=== PATIENT | male | born 1970 | race Caucasian/White ===

== ENCOUNTER 2025-07-26 11:41 | Emergency (ER) | payer OTHER, SELFPAY ==
--- OUTSIDE RECORDS SUMMARY | 2007-01-13 03:03 | XMS_ITS | Continuity of Care Document ---
Author Organization [facility] Address [address] [place] [address] Phone Care Team Providers Care Matlab Developer Name Role Phone Unavailable Unavailable Unavailable Procedures Procedure [facility] Advance Directives Directive Yes / No Effective Date File Name No Information Encounters Encounter Description Practice Location Reason(s) For Visit Diagnoses Date Provider Providers Copied on Encounter Office/outpat ient visit,[facility], [address], [place], [place], [id number], [place] tel:[phone] [facility] No Information 7 No Information Family History Family Member Type Diagnosis Age At Onset No Information Payers Payer name Insurance type Covered alliance party ID Authoriza tion(s) [employer] Blue Shiel d [place] BL [id number] Social History Type Description Quantity Date Captured Comments Sex Male Smoking Status No Information Chief Complaint And Reason For Visit No Information Reason For Referral Reason For Referral No Information History Of Present Illness Encounter Date Complaint History Of Prese nt Illness No Information Functional Status Date Functional Assessmen t No Information Instructions Date Instruction Additional Infor mation No Information Assessments Type Assessment Date No Information Patient Care Teams Name Effective Dates (start - stop) Status Members No Information
--- OUTSIDE RECORDS SUMMARY | 2007-01-13 03:03 | XMS_ITS | Continuity of Care Document ---
Author Organization [facility] Address [address] [place] [address] Phone Care Team Providers Care Salad Maker Name Role Phone Unavailable Unavailable Unavailable Procedures Procedure [facility] Advance Directives Directive Yes / No Effective Date File Name No Information Encounters Encounter Description Practice Location Reason(s) For Visit Diagnoses Date Provider Providers Copied on Encounter Office/outpat ient visit,[facility], [address], [place], [place], [id number], [place] tel:[phone] [facility] No Information 7 No Information Family History Family Member Type Diagnosis Age At Onset No Information Payers Payer name Insurance type Covered libertarian ID Authoriza tion(s) [employer] Blue [employer] Blue Shiel d [place] BL [id number] Social History Type Description Quantity Date Captured [...]
[2025-07-26 11:51] VITALS: BP 142/93; PULSE 71; RESP 18; TEMP 36.6; O2SAT 99
--- OUTSIDE RECORDS SUMMARY | 2025-07-26 11:59 | XMS_ITS | Clinical Summary ---
Author Organization [facility] Address [address] [place] [address] Care Team Providers Care Nursery Technician Name Role Phone Harpreet Thompson MD Primary Care Provider [phone] Source Comments [facility] [facility],non-owned Affiliates and Associated Physician Practices is amultiple site organization consisting of ambulatory clinics and hospital sitesin [place], [place], [place]. This disclosure is being madepursuant to the Care Everywhere program and may not contain all information available regarding this patient. Last updated 18.[facility] [facility] Allergies No known active allergies Medications * Be aware that medications may not be up to date on this document. Alwaysverify current medications with the patient. ibuprofen (Motrin) 200 MG tablet Take 3 (three) tablets by mouth every 6 hours as needed for Pain Active methylPREDNISol one (Medrol Dosepak) 4 MG tabletIndicatio ns:Prepatellar bursitis of right knee Take by mouth as directed Take as directed by mouth per package instructions. 21 tablet 04/06/2024 Active Active Problems Problem Noted Date Diagnosed Date Kidney stone on left side 12/02/2019 Family History Medical History Relation Name Comments Nephrolithiasis Father Cancer Mother Relation Name Status Comments Father Alive Mother Social History Tobacco Use Types Packs/Day Years Used Date Smoking Tobacco: Never Smokeless Tobacco: Never Tobacco Cessation:Counseling Given: Not Answered Alcohol Use Standard Drinks/Week Comments Yes 0 (1 standard drink = 0.6 oz pur e alcohol) occasional PHQ-2 Answer Date Recorded Patient Health Questionnaire-2 Score 0 04/06/2024 Sex and Gender Information Value Date Recorded Sex Assigned at Not on file 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 Gender Identity Not on file Sexual Orientation Not on file Last Filed Vital Signs Vital Sign Reading Time Taken Comments Blood Pressure 124/68 04/06/2024 8:35 AM CDT Pulse 98 04/06/2024 8:35 AM CDT Temperature 36.9 C (98.4 F) 04/06/2024 8:35 AM CDT Respiratory Rate 16 04/06/2024 8:35 AM CDT Oxygen Saturation 98% 04/06/2024 8:35 AM CDT Inhaled Oxygen Concentration - - Weight 79.1 kg (174 lb 6.4 oz) 04/06/2024 8:35 A M CDT Height 190.5 cm (6' 3) 04/06/2024 8:35 AM CDT Body Mass Index 21.8 04/06/2024 8:35 AM CDT Plan of Treatment Health Maintenance Due Date Last Done Comments COLOGUARD (AGES 45-75) - COL ON CA SCREENING 1971 COLON MONITORING 1971 COLONOSCOPY - COLON CA SCREENING 1971 CT COLONOGRAPHY - COLON CA SCREENING 1971 Colorectal Cancer Screening 1971 FIT - COLON CA SCREENING 1971 FLEX SIG - COLON CA SCREENING 1971 LIPID TESTING 1971 HIV SCREENING 1986 HEPATITIS C SCREENING 02/19/1989 DTAP/TDAP/TD VACCINES (1 - Tdap) 1990 HEPATITIS B VACCINE (1 of 3 - 19+ 3-dose series) 1990 PNEUMOCOCCAL VACCINE 50+ (1 of 1 - PCV) 2021 ZOSTER VACCINE (1 of 2) 2021 DEPRESSION SCREENING 11/18/2024 04/06/2024, 11/14/2023 COVID-19 VACCINE (1 - 2023-2 5 season) 2025 INFLUENZA VACCINE (#1) 2025 HIB VACCINE Aged Out No longer eligi ble based on patient's age to complete this topic HPV VACCINE Aged Out No longer eligi ble based on patient's age to complete this topic MENINGOCOCCAL (Group B) VACCINE SHARED DECISION-MAKING Aged Out No longer eligible based on patient's age to complete this topic MENINGOCOCCAL GROUPS A/C/Y/W VACCINE Aged Out No longer eligible b ased on patient's age to complete this topic Medical Devices Implanted Type Area Endocrinology Teacher Device Identifier Shelf Expiration Date Model / Serial / Lot Stent Uret 6fr 30cm Pgtl Crv Bldr Mrk - Sn/A Implanted:Qty: 1 on 12/02/2019 by Igor Pacheco MD at [facility] [employer] [facility] 08/04/2022 [id number] / N/A / [id number] Insurance Member Subscriber Plan / Payer (Ef fective 2019-Present) Name:Sedrick Rojo Member ID:Not on file Relation to Subscriber:Spouse Name:CHRISTIANNE ROJO Date of :1975 (Home) Address: [address] [place] [address] Payer ID:[id number] (NAIC) Type:PPO Address: [place] [phone] Advance Directives * Full Code (Latest Code Status on File) Date Activated Date Inactivated Comments 12/02/2019 8:48 AM 12/04/2019 11:42 AM Care Teams Nursery Technician Relationship Specialty Start Date End Date Harpreet Thompson MD [address] [place] [phone] PCP - General Family Medicine 11/14/23
--- NOTE | 2025-07-26 12:06 | ED.SKABFB ---
HPI - Skin/Abscess/Foreign Bdy General Chief complaint: Skin/Abscess/Foreign Body Stated complaint: finger infection Time Seen by Provider: 07/26/25 12:05 Source: patient, RN notes reviewed and old records reviewed Mode of arrival: ambulatory Limitations: no limitations History of Present Illness HPI narrative: 55 year old male presents to express care with complaints of poking self in the right index finger with a wire about 13 days ago and was seen on the at other provider and put on Bactrim DS and completed all doses. He states that he did not get a tetanus shot and he probably need to update that. He states that his right index finger remains swollen especially along the distal patel aspect with area of increased tenderness. Using #18 gauge needle attempted I/D of thumb with nothing but blood obtained, band-aide applied. Patient reports history of MRSA to his knee in the past after poking it with wire and had to have knee drained and had to have IV antibiotics daily at the hospital for 5 days. Patient suddenly became very diaphoretic and acutely pale and was unresponsive which occurred about 5 minutes after attempted I&D, he stated to regain consciousness and had focal staring and then he shook his head and arms before he was fully responding. Patient continued to be diaphoretic and ambulance responded to clinic. Daughter here and patient refused transport to hospital by ambulance so she states that she would take him to hospital. Patient does admit to one prior syncope event when his youngest daughter was born many years ago. MD complaint: other (poked finger with a piece of wire 13 days ago remains red swollen and painful after 10 days of antibiotics) Onset (ago): day(s) (13) Tetanus up to date: no Severity scale (1-10): 3 Quality: aching Treatments prior to arrival: antibiotic (Bactrim and soaking finger in Epsom Salt) and other Related Data Allergies Allergy/AdvReac Type Severity Reaction Status Date / Time No Known Allergies Allergy Verified 07/26/25 11:51 Review of Systems Review of Systems: CONSTITUTIONAL: Denies fever, chills, or sweats. EYES: Denies visual changes, redness, or discharge. ENT: Denies rhinorrhea, congestion, sore throat, or otalgia. CARDIOVASCULAR: Denies chest pain, palpitations, or edema. RESPIRATORY: Denies cough or dyspnea. GASTROINTESTINAL: Denies abdominal pain, nausea, vomiting, or diarrhea. GENITOURINARY: Denies dysuria or hematuria. SKIN: Denies rash or itching. positive for red swollen right index finger with some fluctuant tissue noted distal patel aspect, poked with wire 13 days ago history of MRSA MUSCULOSKELETAL: Denies back pain, joint pain, or myalgia. NEUROLOGIC: Denies headache, numbness, or weakness. PSYCHIATRIC: Denies anxiety or depression. All systems reviewed & are unremarkable except as noted in HPI and below PMFSH Past Medical History Medical History (Updated 07/26/25 @ 20:15 by Dora Reagan NP) MRSA (methicillin resistant staph aureus) culture positive Social History Social History (Updated 07/26/25 @ 20:03 by Dora Reagan NP) Smoking status: Never smoker Alcohol intake: current Alcohol use details: rare social Substance use type: does not use Living arrangements: with family Gender identity (if verbalized by the patient): Male Comments At time of signature, agree with nursing past medical, surgical, social and family history. There is no relevant family history pertinent to the presenting complaint Exam Narrative: GENERAL: Well-appearing, well-nourished, and in no acute distress. HEAD: Normocephalic, atraumatic. EYES: PERRLA and EOMI. ENT: Nares clear, no rhinorrhea or epistaxis. Mucous membranes moist. NECK: Supple. no lymphadenopathy CHEST: Clear to auscultation. No respiratory distress. HEART: Regular rate and rhythm. No murmur heard. Normal peripheral pulses. ABDOMEN: Soft, nontender, nondistended, normal active bowel sounds. EXTREMITIES: Normal range of motion. No edema. 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 SKIN: Warm, dry, no rash. NEURO: No focal deficits. Alert and oriented x3. see procedure note Course Course Emergency Course: Patient is aware of diagnosis, understands and agrees to treatment plan.? Anticipatory guidance given.? Patient agrees to follow-up as directed and is aware of reasons to seek care at the emergency department. Portions of this record may have been created with voice recognition software Level of Care: Express Care Visit Vital Signs Vital signs: Vital Signs Temperature 36.6 C 07/26/25 11:51 Pulse Rate 71 07/26/25 11:51 Respiratory Rate 18 07/26/25 11:51 Blood Pressure 142/93 H 07/26/25 11:51 Pulse Oximetry 99 07/26/25 11:51 Oxygen Delivery Room Air 07/26/25 11:51 Temperature 36.6 C 07/26/25 11:51 Pulse Rate 66 07/26/25 12:32 Respiratory Rate 18 07/26/25 12:32 Blood Pressure 144/80 H 07/26/25 12:32 Pulse Oximetry 98 07/26/25 12:32 Oxygen Delivery Room Air 07/26/25 12:32 Reviewed Transfer Transfered to: [facility] Transportation: Other (private car) Transfer rationale: episode of syncopal episode versus seizure activity after I/D attempted. possible MRSA right index finger, acute diaphoresis Accepting physician: Dr Cline Transfer comments: Patient transported to ED with daughter by private car for acute diaphoresis, possible vagal syncopal episode versus possible seizure activity Procedures Abscess I/D finger: Date of Incision: 07/26/25 Time of Incision: 12:12 Side (if applicable): right (distal patel index) Sedation/analgesia: none Local Anesthetic: none Technique: needle aspiration Irrigation: No Packing used?: none I&D Results: Blood Complications: other (syncopal episode 5 minutes after procedure with possible seizure lasting 2-3 minutes) Abcess I&D Additional Comments: no purulent drainage noted just small amount of blood obtained band-aide to site MDM - Skin/Abscess/Foreign Bdy MDM Narrative Medical decision making narrative: 1231 call to ED at [facility] with report given to Luisa TERRY with Dr Cline accepting physician. Differential Diagnosis Differential diagnosis: Likely abscess of skin or subcutaneous tissue, cellulitis and other (vagal syncopal episode versus seizure.) Medical Records Attestation: I reviewed the patient's medical records. Critical Care Time Critical Care Time Critical Care Time: No Discharge Plan Discharge Clinical Impression: Finger infection Syncopal episodes Qualifiers: Syncope type: unspecified Qualified Code(s): R55 - Syncope and collapse Patient Disposition: Acute Care Hospital Condition: Stable Patient Language: Ethiopian Prescriptions: No Action clindamycin HCl [Cleocin HCl] 300 mg capsule 300 mg PO Q6H 7 Days Qty: 28 0RF Follow-up/Referrals: PHYSICIAN,AUGER SUPERVISOR [Primary Care Provider, Internal Medicine] Time of Disposition: 12:31 Quality Kelly Coma Scale Eyes: Open Verbal: Oriented and Alert Motor: Follows Commands Kelly Coma Total Score: 15
--- NOTE | 2025-07-26 12:25 | PC.NURSE ---
1219- Boostrix not given d/t change in pt condition. Pt had I&D procedure then. Became diaphoretic, pale and passed out, looked like focal seizure and convulsed when he came to. Denies any prior seizure history.
[2025-07-26 12:32] VITALS: BP 144/80; PULSE 66; RESP 18; O2SAT 98
== END 2025-07-26 12:34 | disposition short-term general hospital (02) ==
LOC: EXPTROY 11:46
PROVIDERS: Emergency Provider Registered Nurse; Referring Provider Emergency Medicine
DX: L08.9 Local infection of the skin and subcutaneous tissue, unspecified (principal); R55 Syncope and collapse; Z86.14 Personal history of Methicillin resistant Staphylococcus aureus infection
CPT/HCPCS: 10160; 99213; G0463

== ENCOUNTER 2025-07-26 12:56 | Emergency (ER) | payer OTHER, SELFPAY ==
--- OUTSIDE RECORDS SUMMARY | 2007-01-13 03:03 | XMS_ITS | Continuity of Care Document ---
Author Organization [facility] Address [address] [place] [address] Phone Care Team Providers Care Passenger Service Manager Name Role Phone Unavailable Unavailable Unavailable Procedures Procedure [facility] Advance Directives Directive Yes / No Effective Date File Name No Information Encounters Encounter Description Practice Location Reason(s) For Visit Diagnoses Date Provider Providers Copied on Encounter Office/outpat ient visit,[facility], [address], [place], [place], [id number], [place] tel:[phone] [facility] No Information 7 No Information Family History Family Member Type Diagnosis Age At Onset No Information Payers Payer name Insurance type Covered constitution party ID Authoriza tion(s) [employer] Blue [employer] Blue Shiel d [place] BL [id number] Social History Type Description Quantity Date Captured [...]
--- OUTSIDE RECORDS SUMMARY | 2025-07-26 13:06 | XMS_ITS | Clinical Summary ---
Author Organization [facility] Address [address] [place] [address] Care Team Providers Care Data Control Assistant Name Role Phone Harpreet Thompson MD Primary Care Provider [phone] Source Comments [facility],non-owned Affiliates and Associated Physician Practices is amultiple site organization consisting of ambulatory clinics and hospital sitesin [place], [place], [place] and [place]. This disclosure is being madepursuant to the Care Everywhere program and may not contain all information available regarding this patient. Last updated 18.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 [employer] [facility] 08/04/2022 [id number] / N/A / [id number] Insurance Member Subscriber Plan / Payer (Ef fective 2019-Present) Name:Sedrick Rojo Member ID:Not on file Relation to Subscriber:Spouse Name:CHRISTIANNE ROJO Date of :1975 (Home) Address: [address] [place] [address] Payer ID:[id number] (NAIC) Type:PPO Address: [place] [phone] Advance Directives * Full Code (Latest Code Status on File) Date Activated Date Inactivated Comments 12/02/2019 8:48 AM 12/04/2019 11:42 AM Care Teams Data Control Assistant Relationship Specialty Start Date End Date Harpreet Thompson MD [address] [place] [phone] PCP - General Family Medicine 11/14/23
[2025-07-26 13:10] VITALS: BP 121/73; PULSE 62; RESP 16; TEMP 36.6; O2SAT 100
--- OUTSIDE RECORDS SUMMARY | 2025-07-26 14:46 | XMS_ITS | Clinical Summary ---
Author Organization [facility] [employer] Address [address] [place] [address] Care Team Providers Care Vamp Wetter Name Role Phone Harpreet Thompson MD Primary Care Provider [phone] Source Comments [facility] [employer],non-owned Affiliates and Associated Physician Practices is amultiple site organization consisting of ambulatory clinics and hospital sitesin [place], [place], [place] and [place]. This disclosure is being madepursuant to the Care Everywhere program and may not contain all information available regarding this patient. 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 Gender Identity Not on file Sexual Orientation [...] this topic Medical Devices Implanted Type Area Phlebotomist Medical Lab Assistant Device Identifier Shelf Expiration Date Model / Serial / Lot Stent Uret 6fr 30cm Pgtl Crv Bldr Mrk - Sn/A Implanted:Qty: 1 on 12/02/2019 by Igor Pacheco MD at [facility] [employer] [facility] 08/04/2022 [id number] / N/A / [id number] Insurance Member Subscriber Plan / Payer (Ef fective 2019-Present) Name:Sedrick Rojo Member ID:Not on file Relation to Subscriber:Spouse Name:CHRISTIANNE ROJO Date of :1975 (Home) Address: [address] [place] [address] Payer ID:[id number] (NAIC) Type:PPO Address: [place] [phone] Advance Directives * Full Code (Latest Code Status on File) Date Activated Date Inactivated Comments 12/02/2019 8:48 AM 12/04/2019 11:42 AM Care Teams Vamp Wetter Relationship Specialty Start Date End Date Harpreet Thompson MD [address] [place] [phone] PCP - General Family Medicine 11/14/23
[2025-07-26] MEDS: CLINDAMYCIN HCL 150 MG CAP 300 MG PO (15:09)
--- NOTE | 2025-07-26 15:13 | ED_ITS ---
HPI - General Adult General Chief complaint: Extremity Injury, Upper Stated complaint: finger infection x 13 days. Syncope episode today Time Seen by Provider: 07/26/25 14:44 History of Present Illness HPI narrative: 55-year-old male presents to the emergency department for evaluation after having suspected visible episode at the urgent care. Patient does have an ongoing infection to his right index finger. Patient did complete a course of Bactrim and states that he does still feel some swelling on the distal aspect of his right finger. Patient return for a wound check and they are attempting to do an aspiration of his finger tip when he had a vasovagal episode. Urgent Care was concerned that the patient had a seizure or cardiac arrest and had the patient transferred to [place] emergency department by EMS. On arrival emergency department patient is well-appearing denies any complaints. Patient does suspect that he had a vasovagal episode as well. Patient does complain of some pain at the distal aspect of the right finger but other than minor swelling no significant evidence infection. Related Data Allergies Allergy/AdvReac Type Severity Reaction Status Date / Time No Known Allergies Allergy Verified 07/26/25 11:51 Review of Systems Review of Systems: All systems reviewed & are unremarkable except as noted in HPI and below Exam Narrative: APPEARANCE: Well appearing, no pain, no distress, well-nourished. HEAD: normocephalic, atraumatic. EYES: PERRLA/EOMI, conjunctivae clear. NOSE: Normal no drainage EARS:TMS clear with good light reflex. THROAT: Pharynx clear, no exudate. NECK: Supple. No adenopathy, no masses. RESPIRATORY: Airway patent, respirations nonlabored. Clear to auscultation bilaterally, no rales, rhonchi, wheezing. CARDIOVASCULAR: Regular rate and rhythm without murmurs rubs or gallops. ABDOMINAL: Soft, nontender, nondistended, normal bowel sounds MUSCULOSKELETAL: Mild inflammation of the distal right index finger, no paronychia, normal cap refill NEURO: Alert. Cranial nerves II through XII intact. Good gait. Good coordination SKIN: Warm, dry. Normal Color Course Vital Signs Vital signs: Vital Signs Temperature 97.8 F 07/26/25 13:10 Pulse Rate 62 07/26/25 13:10 Respiratory Rate 16 07/26/25 13:10 Blood Pressure 121/73 07/26/25 13:10 Pulse Oximetry 100 07/26/25 13:10 Oxygen Delivery Room Air 07/26/25 13:10 Temperature 97.8 F 07/26/25 13:10 Pulse Rate 62 07/26/25 13:10 Respiratory Rate 16 07/26/25 13:10 Blood Pressure 121/73 07/26/25 13:10 Pulse Oximetry 100 07/26/25 13:10 Oxygen Delivery Room Air 07/26/25 13:10 Medical Decision Making MDM Narrative Medical decision making narrative: 55-year-old male presents emergency department for evaluation for right index finger infection. Patient had been on a course of Bactrim completed this but still has some residual infection. Patient will be started course of clindamycin and provided outpatient follow-up with plastics. All questions concerns were addressed patient was well-appearing at time of discharge. Vital Signs Vital Signs: Vital Signs Temperature 97.8 F 07/26/25 13:10 Pulse Rate 62 07/26/25 13:10 Respiratory Rate 16 07/26/25 13:10 Blood Pressure 121/73 07/26/25 13:10 Pulse Oximetry 100 07/26/25 13:10 Oxygen Delivery Room Air 07/26/25 13:10 Temperature 97.8 F 07/26/25 13:10 Pulse Rate 62 07/26/25 13:10 Respiratory Rate 16 07/26/25 13:10 Blood Pressure 121/73 07/26/25 13:10 Pulse Oximetry 100 07/26/25 13:10 Oxygen Delivery Room Air 07/26/25 13:10 Discharge Plan Discharge Clinical Impression: Finger infection, Vasovagal episode Patient Disposition: Home Condition: Stable Instructions: Antibiotic Form, Cellulitis (ED), Syncope (DC) Additional Instructions: Antibiotic as directed until completed. Have close follow-up with Hand surgery. If you have any worsening symptoms then please call or return to the emergency department. Patient Language: Kazakh Prescriptions: New clindamycin HCl [Cleocin HCl] 300 mg capsule 300 mg PO Q6H 7 Days Qty: 28 0RF Follow-up/Referrals: Rai Ashley MD [Physician, Plastic Surgery] PHYSICIAN,DESIGN AND SALES CONSULTANT [Primary Care Provider, Internal Medicine]
== END 2025-07-26 15:27 | disposition home or self-care (01) ==
PROVIDERS: Emergency Provider Emergency Medicine
DX: L08.9 Local infection of the skin and subcutaneous tissue, unspecified (principal); R55 Syncope and collapse
CPT/HCPCS: 99283